=== PATIENT | male | born 1955 | race Caucasian/White ===

== ENCOUNTER 2017-09-17 07:31 | Observation (INO) | payer SELFPAY ==
[2017-09-17] VITALS (9 sets, daily range): BP systolic 126–182; BP diastolic 80–96; PULSE 58–73; RESP 16–24; TEMP 97–98; O2SAT 98–99
[~2017-09-17] VITALS: Ht 180.3 cm; Wt 63.8 kg
[~2017-09-17 07:31] MED LIST: CYCL-36 PO; LORT5TAB PO; Z.0.NO CURRENT MEDS
[2017-09-17] MEDS ORDERED: ASPIRIN 325 MG TAB PO ONE (08:45)
[2017-09-17] MEDS ORDERED: SODIUM CHLORIDE 0.9% FLUSH 10 ML FLUSH IVF PRN (08:45)
--- NOTE | 2017-09-17 08:53 | PD ---
HPI Chief Complaint: Chest Pain Time Seen by Provider: 08:33 Travel History International Travel<30 days: No Contact w/Intl Traveler<30days: No Traveled to known affect area: No History of Present Illness HPI 62-year-old male states that he had left-sided low back pain that he's been having intermittently for 6 years but then this morning he developed central chest pain. He states he also gets that intermittently cannot recall when he got it last. He denies taking an aspirin yet today. He denies ever being seen by a physician for his chest pain. He denies specific modifying factors. He denies prior cardiac workup. He states that he does have anxiety and does not know if that is related. Quality is pressure. Severity is moderate. He denies any other concurrent complaints at this time but is a poor historian. [facility] Past Medical History Hypertension: Yes Tetanus Vaccination: Unknown Influenza Vaccination: No Past Surgical History Surgical History: No Previous Surgery Social History Alcohol Use: Yes ("Few beers" after work ) Tobacco Use: No Substance Use: Yes (Marijuana daily ) Allergies-Medications (Allergen,Severity, Reaction): Coded Allergies: No Known Allergies (Verified Adverse Reaction, Unknown, 09/17/17) Reported Meds & Prescriptions Reported Meds & Active Scripts Active No Active Prescriptions or Reported Medications Review of Systems Except as stated in HPI: all other systems reviewed are Neg Physical Exam Narrative GENERAL: 62-year-old male in no apparent distress SKIN: Focused skin assessment warm/dry. HEAD: Atraumatic. Normocephalic. EYES: No scleral icterus. No injection or drainage. ENT: No nasal bleeding or discharge. Mucous membranes pink and moist. NECK: Trachea midline. CARDIOVASCULAR: Regular rate and rhythm. RESPIRATORY: No accessory muscle use. Clear to auscultation. Breath sounds equal bilaterally. GASTROINTESTINAL: Abdomen soft, non-tender, nondistended. MUSCULOSKELETAL: No obvious deformities. No clubbing. No cyanosis. No edema. NEUROLOGICAL: Awake and alert. No obvious cranial nerve deficits. Motor grossly within normal limits. Normal speech. Data Data Last Documented VS Vital Signs Date Time Temp Pulse Resp B/P (MAP) Pulse Ox O2 Delivery O2 Flow Rate FiO2 09/17/17 10:45 73 16 166/93 (117) 98 Room Air 09/17/17 07:37 97.9 Orders Orders Electrocardiogram (09/17/17 ) Electrocardiogram (09/17/17 08:38) Ckmb (Isoenzyme) Profile (09/17/17 08:38) Complete Blood Count With Diff (09/17/17 08:38) Comprehensive Metabolic Panel (09/17/17 08:38) Magnesium (Mg) (09/17/17 08:38) Prothrombin Time / Inr (Pt) (09/17/17 08:38) Act Partial Throm Time (Ptt) (09/17/17 08:38) Troponin I (09/17/17 08:38) Lipase (09/17/17 08:38) Ecg Monitoring (09/17/17 08:38) Bilateral Bp Monitoring (09/17/17 08:38) Iv Access Insert/Monitor (09/17/17 08:38) Oximetry (09/17/17 08:38) Aspirin (Aspirin) (09/17/17 08:45) Sodium Chloride 0.9% Flush (Ns Flush) (09/17/17 08:45) Chest, Pa & Lat (09/17/17 08:38) Urinalysis - C+S If Indicated (09/17/17 08:38) Drug Screen, Random Urine (09/17/17 08:53) CKMB (09/17/17 08:50) CKMB% (09/17/17 08:50) Admit Order (Ed Use Only) (09/17/17 10:44) Place In Observation (09/17/17 ) Vital Signs (Adult) Q4H (09/17/17 10:49) Activity Oob With Assistance (09/17/17 10:49) [employer] / Telemetry .CONTINUOUS (09/17/17 10:49) Diet Npo (09/17/17 Lunch) Sodium Chlor 0.9% 1000 Ml Inj (Ns 1000 M (09/17/17 10:49) Sodium Chloride 0.9% Flush (Ns Flush) (09/17/17 11:00) Sodium Chloride 0.9% Flush (Ns Flush) (09/17/17 21:00) Ondansetron Inj (Zofran Inj) (09/17/17 11:00) Comprehensive Metabolic Panel (09/18/17 06:00) Complete Blood Count With Diff (09/18/17 06:00) Enoxaparin Inj (Lovenox Inj) (09/17/17 11:00) Scd Bilateral/Knee High WILFRED.BID (09/17/17 10:49) Naloxone Inj (Narcan Inj) (09/17/17 11:00) Magnesium Hydroxide Liq (Milk Of Magnesi (09/17/17 11:00) Troponin I (09/17/17 12:00) Troponin I (09/17/17 18:00) Labs Laboratory Tests Test 09/17/17 08:50 09/17/17 09:00 White Blood Count 10.3 TH/MM3 Red Blood Count 5.79 MIL/MM3 Hemoglobin 15.7 GM/DL Hematocrit 48.5 % Mean Corpuscular Volume 83.7 FL Mean Corpuscular Hemoglobin 27.1 PG Mean Corpuscular Hemoglobin Concent 32.4 % Red Cell Distribution Width 12.8 % Platelet Count 311 TH/MM3 Mean Platelet Volume 7.4 FL Neutrophils (%) (Auto) 69.5 % Lymphocytes (%) (Auto) 20.8 % Monocytes (%) (Auto) 5.3 % Eosinophils (%) (Auto) 3.3 % Basophils (%) (Auto) 1.1 % Neutrophils # (Auto) 7.3 TH/MM3 Lymphocytes # (Auto) 2.1 TH/MM3 Monocytes # (Auto) 0.5 TH/MM3 Eosinophils # (Auto) 0.3 TH/MM3 Basophils # (Auto) 0.1 TH/MM3 CBC Comment DIFF FINAL Differential Comment Prothrombin Time 10.6 SEC Prothromb Time International Ratio 1.0 RATIO Activated Partial Thromboplast Time 28.2 SEC Blood Urea Nitrogen 7 MG/DL Creatinine 0.91 MG/DL Random Glucose 86 MG/DL Total Protein 8.3 GM/DL Albumin 3.9 GM/DL Calcium Level 9.0 MG/DL Magnesium Level 2.1 MG/DL Alkaline Phosphatase 60 U/L Aspartate Amino Transf (AST/SGOT) 25 U/L Alanine Aminotransferase (ALT/SGPT) 32 U/L Total Bilirubin 1.2 MG/DL Sodium Level 135 MEQ/L Potassium Level 4.7 MEQ/L Chloride Level 103 MEQ/L Carbon Dioxide Level 27.0 MEQ/L Anion Gap 5 MEQ/L Estimat Glomerular Filtration Rate 84 ML/MIN Total Creatine Kinase 200 U/L Creatine Kinase MB 4.6 NG/ML Troponin I 0.10 NG/ML Lipase 106 U/L Urine Collection Type CLEAN CATCH Urine Color YELLOW Urine Turbidity CLEAR Urine pH 6.0 Urine Specific [place] 1.010 Urine Protein NEG mg/dL Urine Glucose (UA) NEG mg/dL Urine Ketones NEG mg/dL Urine Occult Blood TRACE Urine Nitrite NEG Urine Bilirubin NEG Urine Urobilinogen 0.2 MG/DL Urine Leukocyte Esterase NEG Urine RBC 0-3 /hpf Urine Squamous Epithelial Cells 0-5 /hpf Microscopic Urinalysis Comment CULT NOT INDICATED Urine Opiates Screen NEG Urine Barbiturates Screen NEG Urine Amphetamines Screen NEG Urine Benzodiazepines Screen NEG Urine Cocaine Screen POS Urine Cannabinoids Screen POS MDM Medical Decision Making Medical Screen Exam Complete: Yes Emergency Medical Condition: Yes Medical Record Reviewed: Yes (past history confirmed) Interpretation(s) EKG shows NSR, no ST elevation or depression, and no arrhythmias. No significant T-wave inversions. CBC & BMP Diagram 09/17/17 08:50 Total Protein 8.3 H, Albumin 3.9, Calcium Level 9.0, Magnesium Level 2.1, Alkaline Phosphatase 60, Aspartate Amino Transf (AST/SGOT) 25, Alanine Aminotransferase (ALT/SGPT) 32, Total Bilirubin 1.2 H Last 24 hours Impressions Chest X-Ray 09/17/17 0838 Signed Impressions: Service Date/Time: Sunday, September 17, 2017 09:04 - CONCLUSION: No acute disease. Kale Adrian MD Differential Diagnosis Atypical cardiac, musculoskeletal, gastritis, stone Narrative Course Will check blood work, chest x-ray, EKG and dose with aspirin and reevaluate. Given age he likely will need testing for observation ed workup with elevated troponin, will discuss with cardiology patient updated and agrees to admit Physician Communication Physician Communication dr baum states needs nuclear stress test, can stay in [place], no additional meds recommended and try to do stress today dr becerra agrees to admit Diagnosis Primary Impression: Chest pain Qualified Codes: R07.9 - Chest pain, unspecified Additional Impressions: Elevated troponin Cocaine abuse Admitting Information Admitting Physician Requests: Observation Scripts No Active Prescriptions or Reported Meds Francesca Nascimento MD Sep 17, 2017 08:53
[2017-09-17 08:57] LABS: AUTOMATED NEUTROPHIL # 7.3 TH/MM3 (1.8-7.7); BASOPHIL # 0.1 TH/MM3 (0-0.2); BASOPHIL % 1.1 % (0.0-2.0); EOSINOPHIL # 0.3 TH/MM3 (0-0.4); EOSINOPHIL % 3.3 % (0.0-4.0); HEMATOCRIT 48.5 % (39.0-51.0); HEMOGLOBIN 15.7 GM/DL (13.0-17.0); LYMPH % 20.8 % (9.0-44.0); LYMPHOCYTE # 2.1 TH/MM3 (1.0-4.8); MEAN CELL VOLUME 83.7 FL (80.0-100.0); MEAN CORPUSCULAR HEMOGLOBIN 27.1 PG (27.0-34.0); MEAN CORPUSCULAR HGB CONC 32.4 % (32.0-36.0); MEAN PLATELET VOLUME 7.4 FL (7.0-11.0); MONO % 5.3 % (0.0-8.0); MONOCYTE # 0.5 TH/MM3 (0-0.9); NEUT % 69.5 % (16.0-70.0); PLATELET COUNT 311 TH/MM3 (150-450); RED BLOOD COUNT 5.79 MIL/MM3 (4.50-5.90); RED CELL DISTRIBUTION WIDTH 12.8 % (11.6-17.2); WHITE BLOOD COUNT 10.3 TH/MM3 (4.0-11.0)
[2017-09-17 09:02] LABS: BILIRUBIN, URINE NEG (NEG); BLOOD, URINE TRACE (NEG); GLUCOSE,URINE NEG (NEG); KETONE, URINE NEG (NEG); NITRITE,URINE NEG (NEG); URINE COLOR YELLOW (YELLW/STRAW); URINE LEUKOCYTE ESTERASE NEG (NEG)
[2017-09-17 09:07] LABS: CHLORIDE 103 MEQ/L (98-107); SODIUM (NA) 135 MEQ/L (136-145)
[2017-09-17 09:08] LABS: RBC, URINE 0-3 /hpf (0-3)
[2017-09-17 09:09] LABS: SQUAMOUS EPITHELIAL CELL URINE 0-5 /hpf (0-5)
[2017-09-17 09:11] LABS: ALBUMIN 3.9 GM/DL (3.4-5.0); BLOOD UREA NITROGEN 7 MG/DL (7-18); GLUCOSE,RANDOM 86 MG/DL (74-106); MAGNESIUM 2.1 MG/DL (1.5-2.5); PROTHROMBIN TIME - PATIENT 10.6 SEC (9.8-11.6)
[2017-09-17 09:14] LABS: ALT (GPT) 32 U/L (12-78); AST (GOT) 25 U/L (15-37); CREATININE 0.91 MG/DL (0.60-1.30); GLOMERULAR FILTRATION RATE 84 ML/MIN (>89)
[2017-09-17 09:15] LABS: TOTAL BILIRUBIN ADULT 1.2 MG/DL (0.2-1.0); TOTAL PROTEIN 8.3 GM/DL (6.4-8.2)
[2017-09-17 09:17] LABS: ALKALINE PHOSPHATASE 60 U/L (45-117)
--- NOTE | 2017-09-17 09:24 | RADRPT ---
EXAM DATE/TIME: 09/17/2017 09:04 [facility] COMPARISON: No previous studies available for comparison. INDICATIONS : Chest pain. MEDICAL HISTORY : None. SURGICAL HISTORY : None. ENCOUNTER: Initial ACUITY: 2 days PAIN SCORE: 2/10 LOCATION: Bilateral chest FINDINGS: PA and lateral views of the chest demonstrate the lungs to be symmetrically aerated without evidence of mass, infiltrate or effusion. The cardiomediastinal contours are unremarkable. Osseous structure s are intact. CONCLUSION: No acute disease. Kale Adrian MD on September 17, 2017 at 9:22 Board Certified Radiologist. This report was verified electronically.
[2017-09-17] MEDS ORDERED: SODIUM CHLOR 0.9% 1000 ML INJ 1,000 ML IV SCH (10:49)
[2017-09-17] MEDS ORDERED: SODIUM CHLORIDE 0.9% FLUSH 10 ML FLUSH IV FLUSH PRN (11:00)
[2017-09-17] MEDS ORDERED: ONDANSETRON HCL 4 MG/2 ML VIAL IVP PRN (11:00)
[2017-09-17] MEDS ORDERED: MAGNESIUM HYDROXIDE SUSP 30 ML CUP PO PRN (11:00)
[2017-09-17] MEDS ORDERED: NALOXONE HCL 0.4 MG/ML AMP IV PUSH PRN (11:00)
--- NOTE | 2017-09-17 11:22 | EKG ---
Date Performed: 09/17/2017 Time Performed: 08:41:01 PTAGE: 62 years EKG: Sinus rhythm WITH OCCASIONAL SUPRAVENTRICULAR PREMATURE COMPLEXES BORDERLINE ECG PREVIOUS TRACING 09/24/1998 Since the previous tracing, no significant change noted DOCTOR: Jerel Oleary Interpretating Date/Time 09/17/2017 11:21:39
[2017-09-17] MEDS ORDERED: ENOXAPARIN SODIUM 40 MG/0.4 ML SYRINGE SQ SCH (12:00)
--- NOTE | 2017-09-17 16:12 | HHI.HP ---
[facility] Service [place] [facility] Primary Care Physician No Primary Care Physician Admission Diagnosis chest pain, elevated troponin Diagnoses: (1) Chest pain Diagnosis: Principal (2) Elevated troponin Diagnosis: Principal (3) Cocaine abuse Diagnosis: Principal Chief Complaint: Chest pain Travel History International Travel<30 Days: No Contact w/Intl Traveler <30 Da: No Traveled to Known Affected Are: No History of Present Illness This is a 62-year-old male with known history of chronic back pain, cocaine abuse who presented to the hospital because of back and chest pain. Patient states that he has been experiencing chest pain intermittently for the last few years. States that happens approximately 2 times a week and mainly in the morning. The pain can happen during rest or during exertion. He describes it as a heaviness in the middle part of his chest that can last for hours at a time and resolved on its own. He denies any nausea, vomiting, shortness of breath, dyspnea, lightheadedness, dizziness. Denies any radiation to the neck, back, shoulder, arm. Patient also has chronic which he has used to, he usually takes ibuprofen for pain control. However this morning he also had chest discomfort. Because of that he came to emergency department for evaluation. Patient had workup done emergency department found to have equivocal troponin elevation. Cardiology was consulted by ER physician who recommended continued to trend cardiac enzymes and if they do not worsen then pursue stress test for further evaluation. At the spring former request the ER physician recommended observation evaluation to the hospitalist and Heather Cameron. At the time evaluated patient he is asymptomatic. He has not had any recurrence during his stay in the hospital. The patient is very eager to pursue stress test so he can go home. Patient indicates that he does use cocaine in which he smokes it at least weekly. He did smoke some last night. Review of Systems Cardiovascular: COMPLAINS OF: Chest pain Musculoskeletal: COMPLAINS OF: Back pain Except as stated in HPI: all other systems reviewed are Neg Past Family Social History Past Medical History Chronic back pain Cocaine abuse Past Surgical History Patient denies any previous surgeries. Reported Medications Reported Meds & Active Scripts Active No Active Prescriptions or Reported Medications Allergies: Coded Allergies: No Known Allergies (Verified Allergy, Unknown, 09/17/17) Family History Reviewed and unremarkable for any heart disease, lung disease, diabetes, seizure , stroke Social History Patient does drink alcohol occasionally. Does use cocaine by smoking it at least weekly. Does smoke marijuana occasionally. Physical Exam Vital Signs Vital Signs Date Time Temp Pulse Resp B/P (MAP) Pulse Ox O2 Delivery O2 Flow Rate FiO2 09/17/17 12:00 97.0 63 24 168/82 (110) 98 09/17/17 10:45 73 16 166/93 (117) 98 Room Air 09/17/17 09:00 62 18 182/88 (119) 98 Room Air 09/17/17 08:50 98 Room Air 09/17/17 07:37 97.9 71 16 175/96 (122) 98 Room Air Physical Exam GENERAL: Well-developed, well-nourished, in no acute distress. alert and orientated HEENT: Head is normocephalic without any lesions or masses noted. Facial features are symmetric. Eyes: Pupils equal round reactive to light. Extraocular muscles are intact. Conjunctivae were clear. Oropharyngeal: Pharynx without any erythema edema. Tongue is midline without deviation. Buccal mucosa is moist without any masses or lesions NECK: Supple without any masses. Trachea midline no deviation. No JVD, no bruits are appreciated CARDIAC: Regular rhythm, regular rate. S1/S2 are heard. No murmurs gallops or rubs. LUNGS: Clear to auscultation bilaterally. No wheeze, rhonchi or rales. No use of accessory muscles on inspiration or expiration. ABDOMEN: Soft, nontender. Nondistended. Bowel sounds heard in all 4 quadrants. No organomegaly or masses. Negative rebound, negative guarding EXTREMITIES: No edema, pulses are equal bilaterally. No cyanosis or clubbing NEUROLOGY: Mood and affect appear appropriate. Cranial nerves II through XII grossly intact. Muscle strength 5/5 in upper and lower extremities bilaterally. Deep tendon reflexes are 2+ in upper and lower extremities bilaterally. Laboratory Laboratory Tests Test 09/17/17 08:50 09/17/17 09:00 09/17/17 11:54 White Blood Count 10.3 Red Blood Count 5.79 Hemoglobin 15.7 Hematocrit 48.5 Mean Corpuscular Volume 83.7 Mean Corpuscular Hemoglobin 27.1 Mean Corpuscular Hemoglobin Concent 32.4 Red Cell Distribution Width 12.8 Platelet Count 311 Mean Platelet Volume 7.4 Neutrophils (%) (Auto) 69.5 Lymphocytes (%) (Auto) 20.8 Monocytes (%) (Auto) 5.3 Eosinophils (%) (Auto) 3.3 Basophils (%) (Auto) 1.1 Neutrophils # (Auto) 7.3 Lymphocytes # (Auto) 2.1 Monocytes # (Auto) 0.5 Eosinophils # (Auto) 0.3 Basophils # (Auto) 0.1 CBC Comment DIFF FINAL Differential Comment Prothrombin Time 10.6 Prothromb Time International Ratio 1.0 Activated Partial Thromboplast Time 28.2 Blood Urea Nitrogen 7 Creatinine 0.91 Random Glucose 86 Total Protein 8.3 Albumin 3.9 Calcium Level 9.0 Magnesium Level 2.1 Alkaline Phosphatase 60 Aspartate Amino Transf (AST/SGOT) 25 Alanine Aminotransferase (ALT/SGPT) 32 Total Bilirubin 1.2 Sodium Level 135 Potassium Level 4.7 Chloride Level 103 Carbon Dioxide Level 27.0 Anion Gap 5 Estimat Glomerular Filtration Rate 84 Total Creatine Kinase 200 Creatine Kinase MB 4.6 Troponin I 0.10 0.08 Lipase 106 Urine Collection Type CLEAN CATCH Urine Color YELLOW Urine Turbidity CLEAR Urine pH 6.0 Urine Specific [place] 1.010 Urine Protein NEG Urine Glucose (UA) NEG Urine Ketones NEG Urine Occult Blood TRACE Urine Nitrite NEG Urine Bilirubin NEG Urine Urobilinogen 0.2 Urine Leukocyte Esterase NEG Urine RBC 0-3 Urine Squamous Epithelial Cells 0-5 Microscopic Urinalysis Comment CULT NOT INDICATED Urine Opiates Screen NEG Urine Barbiturates Screen NEG Urine Amphetamines Screen NEG Urine Benzodiazepines Screen NEG Urine Cocaine Screen POS Urine Cannabinoids Screen POS Result Diagram: 09/17/17 0850 09/17/17 0850 Caprini VTE Risk Assessment Caprini VTE Risk Assessment: No/Low Risk (score <= 1) Caprini Risk Assessment Model Point Value = 1 Point Value = 2 Point Value = 3 Point Value = 5 Age 41-60 Minor surgery BMI > 25 kg/m2 Swollen legs Varicose veins or History of unexplained or recurrent spontaneous Oral contraceptives or hormone replacement Sepsis (< 1 month) Serious lung disease, including pneumonia (< 1 month) Abnormal pulmonary function Acute myocardial infarction Congestive heart failure (< 1 month) History of inflammatory bowel disease Medical patient at bed rest Age 61-74 Arthroscopic surgery Major open surgery (> 45 min) Laparoscopic surgery (> 45 min) Malignancy Confined to bed (> 72 hours) Immobilizing plaster cast Central venous access Age >= 75 History of VTE Family history of VTE Factor V Leiden Prothrombin [id number] Lupus anticoagulant Anticardiolipin antibodies Elevated serum homocysteine Heparin-induced thrombocytopenia Other congenital or acquired thrombophilia Stroke (< 1 month) Elective arthroplasty Hip, pelvis, or leg fracture Acute spinal cord injury (< 1 month) Prophylaxis Regimen Total Risk Factor Score Risk Level Prophylaxis Regimen 0-1 Low Early ambulation 2 Moderate Order ONE of the following: *Sequential Compression Device (SCD) *Heparin 5000 units SQ BID 3-4 Higher Order ONE of the following medications: *Heparin 5000 units SQ TID *Enoxaparin/Lovenox 40 mg SQ daily (WT < 150 kg, CrCl > 30 mL/min) *Enoxaparin/Lovenox 30 mg SQ daily (WT < 150 kg, CrCl > 10-29 mL/min) *Enoxaparin/Lovenox 30 mg SQ BID (WT < 150 kg, CrCl > 30 mL/min) AND/OR *Sequential Compression Device (SCD) 5 or more Highest Order ONE of the following medications: *Heparin 5000 units SQ TID (Preferred with Epidurals) *Enoxaparin/Lovenox 40 mg SQ daily (WT < 150 kg, CrCl > 30 mL/min) *Enoxaparin/Lovenox 30 mg SQ daily (WT < 150 kg, CrCl > 10-29 mL/min) *Enoxaparin/Lovenox 30 mg SQ BID (WT < 150 kg, CrCl > 30 mL/min) AND *Sequential Compression Device (SCD) Assessment and Plan Assessment and Plan Chest pain with equivocal troponin elevation Patient with minimal risk factors to include age, male, Troponin elevation could be secondary to cocaine use, possible some cocaine induced ischemia ER physician did consult with Dr. Martinez's cardiology, who indicated that the patient be observed with trending of enzymes and stress test if improved Serial cardiac enzymes show improvement of troponin elevation. EKG reviewed by myself, which is sinus rhythm with occasional supraventricular premature complexes Exercise stress test was borderline secondary to baseline ST changes, will pursue myocardial perfusion study in the morning Cocaine, marijuana abuse Patient counseled on cessation and abstinence DVT prevention Sequential compression devices Problem Qualifiers (1) Chest pain: Qualified Codes: R07.9 - Chest pain, unspecified Ramone Jauregui Sep 17, 2017 16:12
[2017-09-17] MEDS: SODIUM CHLORIDE 0.9% FLUSH 10 ML FLUSH IV FLUSH SCH (20:26)
[2017-09-18 00:19] VITALS: BP 128/67; PULSE 59; RESP 16; TEMP 98.6; O2SAT 98
[2017-09-18 04:00] VITALS: BP 134/68; PULSE 60; RESP 20; TEMP 96.7; O2SAT 96
[2017-09-18 08:00] VITALS: BP 145/82; PULSE 64; RESP 18; TEMP 97.4; O2SAT 100
[2017-09-18 08:15] VITALS: PULSE 58
--- NOTE | 2017-09-18 08:28 | HHI.PR ---
Subjective Remarks Patient seen and examined today for follow-up on chest pain, abnormal exercise stress test. Patient denies any recurrent chest pain. Patient would like to take a shower. He is asking for ibuprofen for his back pain. Vital signs are stable, patient afebrile Objective Vitals Vital Signs Date Time Temp Pulse Resp B/P (MAP) Pulse Ox O2 Delivery O2 Flow Rate FiO2 09/18/17 04:00 96.7 60 20 134/68 (90) 96 09/18/17 00:19 98.6 59 16 128/67 (87) 98 09/17/17 20:50 69 09/17/17 20:24 98.0 62 16 126/80 (95) 99 09/17/17 16:00 97.3 63 20 160/90 (113) 98 09/17/17 14:00 58 09/17/17 12:00 97.0 63 24 168/82 (110) 98 09/17/17 10:45 73 16 166/93 (117) 98 Room Air 09/17/17 09:00 62 18 182/88 (119) 98 Room Air 09/17/17 08:50 98 Room Air I/O 09/17/17 09/17/17 09/17/17 09/18/17 09/18/17 09/18/17 07:00 15:00 23:00 07:00 15:00 23:00 Intake Total 0 ml Output Total 400 ml Balance -400 ml Intake Oral 0 ml Output Urine Total 400 ml # Voids 2 Result Diagram: 09/17/17 0850 09/17/17 0850 Objective Remarks GENERAL: Well-developed, well-nourished, in no acute distress. alert and orientated HEENT: Head is normocephalic without any lesions or masses noted. Facial features are symmetric. Eyes: Extraocular muscles are intact. Conjunctivae were clear. NECK: Supple without any masses. Trachea midline no deviation. No JVD, CARDIAC: Regular rhythm, regular rate. S1/S2 are heard. No murmurs gallops or rubs. LUNGS: Clear to auscultation bilaterally. No wheeze, rhonchi or rales. No use of accessory muscles on inspiration or expiration. ABDOMEN: Soft, nontender. Nondistended. Bowel sounds heard in all 4 quadrants. No organomegaly or masses. Negative rebound, negative guarding EXTREMITIES: No edema, pulses are equal bilaterally. No cyanosis or clubbing NEUROLOGY: Mood and affect appear appropriate. Cranial nerves II through XII grossly intact. Moving all extremities, speech is clear Urinary Catheter: No Vascular Central Line Catheter: No A/P Assessment and Plan Chest pain with equivocal troponin elevation Patient with minimal risk factors to include age, male, Troponin elevation could be secondary to cocaine use, possible some cocaine induced ischemia ER physician did consult with Dr. Martinez's cardiology, who indicated that the patient be observed with trending of enzymes and stress test Serial cardiac enzymes show improvement of troponin elevation. EKG reviewed by myself, which is sinus rhythm with occasional supraventricular premature complexes Exercise stress test was borderline secondary to baseline ST changes, social services coordinator recommended myocardial perfusion study Myocardial perfusion study was performed and indicated no signs of ischemia, low risk Cocaine, marijuana abuse Patient counseled on cessation and abstinence DVT prevention Sequential compression devices Discharge Planning Discharge home in stable condition Activity: Ad guillermo. Diet: Healthy heart diet Medication per medication reconciliation Follow-up with primary medical doctor in 1 week Ramone Jauregui Sep 18, 2017 08:28
[2017-09-18] MEDS ORDERED: IBUPROFEN 600 MG TAB PO PRN (08:30)
[2017-09-18] MEDS: SODIUM CHLORIDE 0.9% FLUSH 10 ML FLUSH IV FLUSH SCH (08:42)
[2017-09-18 09:04] LABS: AUTOMATED NEUTROPHIL # 4.1 TH/MM3 (1.8-7.7); BASOPHIL # 0.2 TH/MM3 (0-0.2); BASOPHIL % 2.2 % (0.0-2.0); EOSINOPHIL # 0.4 TH/MM3 (0-0.4); EOSINOPHIL % 5.9 % (0.0-4.0); HEMATOCRIT 50.2 % (39.0-51.0); HEMOGLOBIN 16.5 GM/DL (13.0-17.0); LYMPH % 29.2 % (9.0-44.0); LYMPHOCYTE # 2.1 TH/MM3 (1.0-4.8); MEAN CELL VOLUME 83.1 FL (80.0-100.0); MEAN CORPUSCULAR HEMOGLOBIN 27.3 PG (27.0-34.0); MEAN CORPUSCULAR HGB CONC 32.9 % (32.0-36.0); MONO % 7.1 % (0.0-8.0); MONOCYTE # 0.5 TH/MM3 (0-0.9); NEUT % 55.6 % (16.0-70.0); PLATELET COUNT 287 TH/MM3 (150-450); RED BLOOD COUNT 6.05 MIL/MM3 (4.50-5.90); RED CELL DISTRIBUTION WIDTH 12.3 % (11.6-17.2); WHITE BLOOD COUNT 7.3 TH/MM3 (4.0-11.0)
[2017-09-18 09:11] LABS: CHLORIDE 105 MEQ/L (98-107); SODIUM (NA) 138 MEQ/L (136-145)
[2017-09-18 09:16] LABS: ALBUMIN 4.2 GM/DL (3.4-5.0); BICARBONATE 27.5 MEQ/L (21.0-32.0); BLOOD UREA NITROGEN 13 MG/DL (7-18); CALCIUM 9.1 MG/DL (8.5-10.1); GLUCOSE,RANDOM 78 MG/DL (74-106)
[2017-09-18] MEDS ORDERED: REGADENOSON INJ 0.4 MG/5 ML SYR IV ONE (09:17)
[2017-09-18 09:19] LABS: ALT (GPT) 31 U/L (12-78); AST (GOT) 24 U/L (15-37); GLOMERULAR FILTRATION RATE 75 ML/MIN (>89)
[2017-09-18 09:21] LABS: TOTAL PROTEIN 8.9 GM/DL (6.4-8.2)
[2017-09-18 09:22] LABS: ALKALINE PHOSPHATASE 66 U/L (45-117)
--- NOTE | 2017-09-18 10:37 | RADRPT ---
EXAM DATE/TIME: 09/18/2017 09:04 [facility] COMPARISON: No previous studies available for comparison. INDICATIONS : Substernal chest pain with polysubstance abuse. Angina. DOSE: 27.2 mCi Tc99m Myoview at stress. 8.5 mCi Tc99m Myoview at rest. 0.4 mg Lexiscan STRESS SYMPTOMS: Dyspnea, nausea, and weird. EJECTION FRACTION: 52% MEDICAL HISTORY : Hypertension. Cocaine abuse. SURGICAL HISTORY : None. ENCOUNTER: Initial ACUITY: 1 day PAIN SCALE: 7/10 LOCATION: Substernal chest TECHNIQUE: The patient underwent pharmacologic stress with infusion of prescribed dose. Continuous ECG tracing was monitored during stress. Gated SPECT imaging was performed after stress and conventional SPECT i maging was performed at rest. The examination was performed on a SPECT/CT scanner, both attenuation and non-corrected datasets were reviewed. FINDINGS: DISTRIBUTION: The maximum perfused segment at stress is in the septal wall. PERFUSION STUDY: The pattern of perfusion at stress is within normal limits. GATED STUDY: There is intact wall motion and thickening without hypokinetic or dyskinetic segments. CONCLUSION: Normal examination. RISK CATEGORY: Low risk Sonja Law MD on September 18, 2017 at 10:32 Board Certified Radiologist. This report was verified electronically.
--- NOTE | 2017-09-18 11:16 | HHI.DCPOC ---
Discharge Care Plan Diagnosis: (1) Elevated troponin (2) Chest pain (3) Cocaine abuse Goals to Promote Your Health * To prevent worsening of your condition and complications * To maintain your health at the optimal level Directions to Meet Your Goals Take your medications as prescribed Follow your dietary instruction Follow activity as directed Keep your appointments as scheduled Take your immunizations and boosters as scheduled If your symptoms worsen call your PCP, if no PCP go to Urgent Care Center or Emergency Room Smoking is Dangerous to Your Health. Avoid second hand smoke Call the 24-hour hour crisis hotline for domestic abuse at Ramone Jauregui Sep 18, 2017 11:16
[2017-09-18 12:00] VITALS: BP 146/77; PULSE 73; RESP 18; TEMP 97.2; O2SAT 98
--- NOTE | 2017-09-18 17:04 | TR ---
Date Performed: 09/18/2017 Time Performed: 09:28:57 DOCTOR: Jimmie Guerrero DRUG LIST: CLINICAL HISTORY: REASON FOR TEST: REASON FOR ENDING: OBSERVATION: CONCLUSION: Lexiscan stress test was performed under standard four minute protocol. Radionucl[place] e was injected one minute prior to ending the test. No electrocardiographic abormalities were present to suggest ischemia. Nuclear imaging and interpretation are pending. COMMENTS:
--- NOTE | 2017-09-18 18:19 | EKG ---
Date Performed: 09/17/2017 Time Performed: 11:58:33 PTAGE: 62 years EKG: Sinus rhythm WITH OCCASIONAL SUPRAVENTRICULAR PREMATURE COMPLEXES NONSPECIFIC T-WAVE ABNORMALITY BORDERLINE ECG PREVIOUS TRACING : 09/17/2017 08.41.01 Since previous tracing, no significant change noted DOCTOR: Jimmie Guerrero Interpretating Date/Time 09/18/2017 18:17:04
== END 2017-09-18 12:26 | disposition home or self-care (01) ==
LOC: PHED 07:31 → PHEDA 10:44 → PH3A 12:16
PROVIDERS: ADMIT Hospitalist; ATTEND Hospitalist
DX: R07.89 Other chest pain (principal); R74.8 Abnormal levels of other serum enzymes; I49.3 Ventricular premature depolarization; I10 Essential (primary) hypertension; M54.9 Dorsalgia, unspecified; G89.29 Other chronic pain; F41.9 Anxiety disorder, unspecified; F12.10 Cannabis abuse, uncomplicated; F14.10 Cocaine abuse, uncomplicated
CPT/HCPCS: 71046; 78452; 80053; 80307; 81001; 82550; 82552; 83690; 83735; 84484; 85025; 85610; 85730; 93005; 93017; 96360; 96361; 96372; 99285; A9502; G0378; J1650; J2785; J7030